=== PATIENT | male | born 1995 | race Caucasian/White ===

== ENCOUNTER 2020-06-07 18:39 | Emergency (ER) | payer OTHER ==
[~2020-06-07] VITALS: Ht 182.9 cm; Wt 90.9 kg
[2020-06-07] MEDS ORDERED: KETOROLAC 60MG 2ML VIAL IM ONE (19:45)
[2020-06-07] MEDS ORDERED: diazePAM 10MG/2ML SYRINGE (J3360 PER 5MG) IM ONE (19:45)
[2020-06-07] MEDS ORDERED: CYCL-707 PO (19:56)
[2020-06-07] MEDS ORDERED: IBUP-1022 PO (19:56)
[2020-06-07 20:37] VITALS: BP 131/73
== END 2020-06-07 20:39 | disposition home or self-care (01) ==
LOC: M ED 18:39 → EDBD 18:39 → M ED 20:39
DX: S33.5XXA Sprain of ligaments of lumbar spine, initial encounter (principal); X50.1XXA Overexertion from prolonged static or awkward postures, initial encounter; Y92.89 Other specified places as the place of occurrence of the external cause; Y93.9 Activity, unspecified; Y99.1 Military activity
CPT/HCPCS: 96372; 99284; J1885; J3360

== ENCOUNTER 2020-11-21 00:14 | Emergency (ER) | payer OTHER ==
[~2020-11-21] VITALS: Ht 182.9 cm; Wt 93.2 kg
[~2020-11-21 00:14] MED LIST: CYCL-707 PO; IBUP-1022 PO
[2020-11-21] MEDS ORDERED: LIDOCAINE 5% (LIDODERM) PATCH TD ONE (00:45)
[2020-11-21] MEDS ORDERED: predniSONE 20 MG TAB PO ONE (00:45)
[2020-11-21] MEDS ORDERED: IBUPROFEN 800 MG TAB PO ONE (00:45)
[2020-11-21] MEDS ORDERED: PRED20TA PO (01:36)
[2020-11-21] MEDS ORDERED: LIDO5DIS41 TOP (01:37)
[2020-11-21 01:40] VITALS: BP 155/73
[2020-11-21] MEDS ORDERED: **NOTE PATIENT COMMENT** MISC XX SCH (12:00)
== END 2020-11-21 01:54 | disposition home or self-care (01) ==
LOC: M ED 00:14
DX: S39.012A Strain of muscle, fascia and tendon of lower back, initial encounter (principal); M54.42 Lumbago with sciatica, left side; W01.0XXA Fall on same level from slipping, tripping and stumbling without subsequent striking against object, initial encounter; Y92.9 Unspecified place or not applicable; Y93.9 Activity, unspecified; Y99.9 Unspecified external cause status